=== PATIENT | male | born 1960 | race Caucasian/White ===

== ENCOUNTER 2016-11-08 09:14 | Emergency (ER) | payer OTHER ==
[2016-11-08 09:39] VITALS: RESP 22; TEMP 98
[2016-11-08] MEDS ORDERED: KETOROLAC TROMETHAMINE 30 MG/ML SOL IM ONE (09:50)
[2016-11-08] MEDS ORDERED: APAP/HYDROCODONE 325/5 TAB PO ONE (09:50)
[2016-11-08] MEDS ORDERED: APAP/HYDROCODONE 325/5 TAB ONE (10:04)
[2016-11-08 10:49] LABS: BASOPHILS % (AUTO) 1 % (0-3); EOSINOPHILS % (AUTO) 14 % (0-9); HEMATOCRIT 44 % (39-53); MEAN CORPUSCULAR HGB CONC 35.3 gm/dl (32.0-36.0); MEAN CORPUSCULAR VOLUME 89 fL (80-100); MONOCYTES % (AUTO) 9.6 % (0-12); NEUTROPHILS % (AUTO) 56.1 % (37-80)
[2016-11-08 11:31] VITALS: BP 135/80; PULSE 58; O2SAT 97
[2016-11-08 11:58] LABS: SEDIMENTATION RATE 5 mm/hr (0-15)
== END 2016-11-08 11:47 | disposition home or self-care (01) | DRG 563 ==
LOC: ED 09:14
DX: S83.421A Sprain of lateral collateral ligament of right knee, initial encounter (principal)
CPT/HCPCS: 36415; 73562; 85025; 85651; 99282; 99284; L1830

== ENCOUNTER 2016-12-17 09:46 | Day surgery (SDC) | payer OTHER ==
[2016-12-17] MEDS ORDERED: BUPIVACAINE HCL 0.25% MPF 10 ML SOL INFIL ONE ×2 (10:23)
[2016-12-17] MEDS ORDERED: MIDAZOLAM 2 MG/2 ML SOL ONE ×2 (10:35→11:54)
[2016-12-17] MEDS ORDERED: PROPOFOL 500 MG/50 ML EMU IV ONE (11:30)
[2016-12-17] MEDS ORDERED: EPHEDRINE SULFATE 50 MG/ML SOL ONE (11:30)
[2016-12-17] MEDS ORDERED: ONDANSETRON HCL 4 MG/2 ML SOL ONE ×2 (11:32→13:40)
[2016-12-17] MEDS ORDERED: OXYTOCIN 10000 MU/ML SOL ONE (13:40)
[2016-12-17] MEDS ORDERED: MORPHINE SULFATE 0.5 MG/ML SOL ONE (14:09)
[2016-12-17] MEDS ORDERED: LIDOCAINE HCL 2% MPF SOL ONE (14:09)
[2016-12-17] MEDS ORDERED: APAP/HYDROCODONE 325/5 TAB ONE ×2 (14:55→15:40)
[2016-12-17] MEDS: APAP/HYDROCODONE 325/5 TAB PO PRN ×2 (14:58→15:43)
[2016-12-17 16:05] VITALS: BP 163/96; PULSE 63; RESP 18; TEMP 97.6; O2SAT 100
== END 2016-12-17 16:00 | disposition home or self-care (01) | DRG 563 ==
LOC: SURG 09:46
PROVIDERS: ATTEND Orthopaedic Surgery
DX: S83.231A Complex tear of medial meniscus, current injury, right knee, initial encounter (principal); M17.11 Unilateral primary osteoarthritis, right knee; M65.861 Other synovitis and tenosynovitis, right lower leg
CPT/HCPCS: J2250; J2275; J2405; J2590; A6402; J2704

== ENCOUNTER 2018-07-20 08:37 | Day surgery (SDC) | payer OTHER ==
[~2018-07-20 08:37] MED LIST: PROPOFOL 500 MG/50 ML EMU IV ONE
[2018-07-20] MEDS ORDERED: PROPOFOL 500 MG/50 ML EMU IV ONE (10:06)
[2018-07-20 10:41] VITALS: BP 127/76; PULSE 58; RESP 18; TEMP 97.4; O2SAT 96
== END 2018-07-20 11:05 | disposition home or self-care (01) | DRG 951 ==
LOC: SURG 08:37
PROVIDERS: ATTEND Surgery
DX: Z12.11 Encounter for screening for malignant neoplasm of colon (principal); Z09 Encounter for follow-up examination after completed treatment for conditions other than malignant neoplasm; Z86.010 Personal history of colon polyps; D12.2 Benign neoplasm of ascending colon
CPT/HCPCS: 99001; J2704